=== PATIENT | male | born 1965 | race African-American/Black ===

== ENCOUNTER 2020-04-13 10:59 | Inpatient (IN) | payer OTHER ==
[2020-04-13 11:10] VITALS: BMI 25.0
[2020-04-13 12:46] LABS: BASO % 0.8 % (0-2.0); EOS % 3.1 % (0-4.5); HEMATOCRIT 41.1 % (35.4-49); HEMOGLOBIN 13.3 GM/dL (11.7-16.9); LYMPH % 27.8 % (8-40); MCH 30.1 pg (25.7-33.7); MCHC 32.4 g/dl (32.0-35.9); MEAN CELL VOLUME 92.9 fl (80-96); MEAN PLT VOLUME 8.4 fl (7.5-11.1); MONO % 6.3 % (3.8-10.2); PLATELET COUNT 247 K/MM3 (134-434); RBC 4.43 M/mm3 (4.00-5.60); RDW 12.9 % (11.9-15.9); WHITE BLOOD COUNT 6.8 K/mm3 (4.0-10.0)
[2020-04-13] MEDS ORDERED: VANCOMYCIN 1 GM in D5W (PRE-DOCKED) 1,000 MG/250 ML IVPB ONE (12:46)
[2020-04-13 12:57] LABS: INR 1.09 (0.83-1.09); PROTHROMBIN TIME (PATIENT) 13.1 SEC (9.7-13.0)
[2020-04-13] MEDS ORDERED: VANCOMYCIN 1 GRAM (PRE-DOCKED) 1,000 MG/250 ML BAG IVPB ONE (13:20)
[2020-04-13 14:04] LABS: ALBUMIN 3.6 g/dl (3.4-5.0); BILIRUBIN,TOTAL 0.5 mg/dL (0.2-1); BLOOD UREA NITROGEN 16.3 mg/dL (7-18); CALCIUM 9.9 mg/dL (8.5-10.1); MAGNESIUM 2.2 mg/dL (1.8-2.4); POTASSIUM 4.2 mmol/L (3.5-5.1); TOT PROT 8.9 g/dl (6.4-8.2)
[2020-04-13] MEDS: CEFAZOLIN 1 GM in DEXTROSE 5%-WATER - 50 ML IVPB SCH ×2 (17:53→18:05)
[2020-04-13] MEDS ORDERED: CEFAZOLIN 1 GM/D5W 1 GM/50 ML BAG ONE (17:55)
[2020-04-13] MEDS ORDERED: HEPARIN NA (PORCINE) 5,000 UNITS/ML 1ML VIAL ONE (21:56)
[2020-04-13] MEDS ORDERED: ACETAMINOPHEN 325 MG TABLET (FP) ONE (21:56)
[2020-04-13] MEDS: HEPARIN NA (PORCINE) 5,000 UNITS/ML 1ML VIAL SQ SCH (22:00)
[2020-04-13] MEDS: ACETAMINOPHEN 325 MG TABLET (FP) PO PRN (22:00)
[2020-04-14] MEDS ORDERED: ceFAZolin SODIUM 1 GM VIAL ONE ×3 (01:58→17:53)
[2020-04-14] MEDS ORDERED: DEXTROSE 5%-WATER - 50 ML IVPB ONE ×3 (01:59→17:53)
[2020-04-14] MEDS: CEFAZOLIN 1 GM in DEXTROSE 5%-WATER - 50 ML IVPB SCH ×3 (02:14→17:56)
[2020-04-14] MEDS ORDERED: LOSARTAN POTASSIUM 100 MG TABLET PO SCH (10:00)
[2020-04-14] MEDS ORDERED: PT OWN MED DRAWER 7, Y5N ONE ×2 (10:09→10:31)
[2020-04-14] MEDS: HEPARIN NA (PORCINE) 5,000 UNITS/ML 1ML VIAL SQ SCH ×2 (10:13→21:32)
[2020-04-14] MEDS: HYDROCHLOROTHIAZIDE 25 MG TABLET (FP) PO SCH (10:13)
[2020-04-14] MEDS: PANTOPRAZOLE 40 MG TABLET PO SCH (10:13)
[2020-04-14] MEDS: COLLAGENASE CLOSTRIDIUM HIST. 30 GRAMS TUBE TP SCH (10:14)
[2020-04-14] MEDS: FENOFIBRIC ACID 135 MG CAP PO SCH (11:14)
[2020-04-15] MEDS ORDERED: ceFAZolin SODIUM 1 GM VIAL ONE ×3 (02:06→16:33)
[2020-04-15] MEDS ORDERED: DEXTROSE 5%-WATER - 50 ML IVPB ONE ×3 (02:07→16:33)
[2020-04-15] MEDS: CEFAZOLIN 1 GM in DEXTROSE 5%-WATER - 50 ML IVPB SCH ×3 (02:14→17:58)
[2020-04-15] MEDS: HEPARIN NA (PORCINE) 5,000 UNITS/ML 1ML VIAL SQ SCH ×2 (09:14→21:15)
[2020-04-15] MEDS: LOSARTAN POTASSIUM 50 MG TABLET PO SCH (09:14)
[2020-04-15] MEDS: PANTOPRAZOLE 40 MG TABLET PO SCH (09:14)
[2020-04-15] MEDS: HYDROCHLOROTHIAZIDE 25 MG TABLET (FP) PO SCH (09:15)
[2020-04-15] MEDS: FENOFIBRIC ACID 135 MG CAP PO SCH (09:15)
[2020-04-15] MEDS: COLLAGENASE CLOSTRIDIUM HIST. 30 GRAMS TUBE TP SCH (09:18)
[2020-04-16] MEDS ORDERED: DEXTROSE 5%-WATER - 50 ML IVPB ONE ×3 (00:26→16:46)
[2020-04-16] MEDS ORDERED: ceFAZolin SODIUM 1 GM VIAL ONE ×3 (00:26→16:46)
[2020-04-16] MEDS: CEFAZOLIN 1 GM in DEXTROSE 5%-WATER - 50 ML IVPB SCH ×3 (02:08→17:46)
[2020-04-16] MEDS: PANTOPRAZOLE 40 MG TABLET PO SCH (09:27)
[2020-04-16] MEDS: HEPARIN NA (PORCINE) 5,000 UNITS/ML 1ML VIAL SQ SCH ×2 (09:28→22:16)
[2020-04-16] MEDS: HYDROCHLOROTHIAZIDE 25 MG TABLET (FP) PO SCH (09:28)
[2020-04-16] MEDS: LOSARTAN POTASSIUM 50 MG TABLET PO SCH (09:28)
[2020-04-16] MEDS: FENOFIBRIC ACID 135 MG CAP PO SCH (09:35)
[2020-04-16] MEDS: COLLAGENASE CLOSTRIDIUM HIST. 30 GRAMS TUBE TP SCH (09:36)
[2020-04-17] MEDS ORDERED: ceFAZolin SODIUM 1 GM VIAL ONE ×3 (00:36→18:01)
[2020-04-17] MEDS ORDERED: DEXTROSE 5%-WATER - 50 ML IVPB ONE ×3 (00:36→18:01)
[2020-04-17] MEDS: CEFAZOLIN 1 GM in DEXTROSE 5%-WATER - 50 ML IVPB SCH ×3 (02:45→18:38)
[2020-04-17] MEDS ORDERED: PT OWN MED DRAWER 7, Y5N ONE (09:35)
[2020-04-17] MEDS: LOSARTAN POTASSIUM 50 MG TABLET PO SCH (09:46)
[2020-04-17] MEDS: HYDROCHLOROTHIAZIDE 25 MG TABLET (FP) PO SCH (09:46)
[2020-04-17] MEDS: FENOFIBRIC ACID 135 MG CAP PO SCH (09:47)
[2020-04-17] MEDS: HEPARIN NA (PORCINE) 5,000 UNITS/ML 1ML VIAL SQ SCH ×2 (09:47→21:08)
[2020-04-17] MEDS: COLLAGENASE CLOSTRIDIUM HIST. 30 GRAMS TUBE TP SCH (09:47)
[2020-04-17] MEDS: PANTOPRAZOLE 40 MG TABLET PO SCH (09:47)
[2020-04-18] MEDS ORDERED: ceFAZolin SODIUM 1 GM VIAL ONE ×3 (01:42→16:33)
[2020-04-18] MEDS ORDERED: DEXTROSE 5%-WATER - 50 ML IVPB ONE ×4 (01:43→20:18)
[2020-04-18] MEDS: CEFAZOLIN 1 GM in DEXTROSE 5%-WATER - 50 ML IVPB SCH ×3 (02:03→17:34)
[2020-04-18] MEDS ORDERED: PT OWN MED DRAWER 7, Y5N ONE (09:20)
[2020-04-18] MEDS: HYDROCHLOROTHIAZIDE 25 MG TABLET (FP) PO SCH (09:34)
[2020-04-18] MEDS: HEPARIN NA (PORCINE) 5,000 UNITS/ML 1ML VIAL SQ SCH ×2 (09:34→21:13)
[2020-04-18] MEDS: FENOFIBRIC ACID 135 MG CAP PO SCH (09:34)
[2020-04-18] MEDS: LOSARTAN POTASSIUM 50 MG TABLET PO SCH (09:34)
[2020-04-18] MEDS: PANTOPRAZOLE 40 MG TABLET PO SCH (09:34)
[2020-04-18] MEDS: COLLAGENASE CLOSTRIDIUM HIST. 30 GRAMS TUBE TP SCH (14:58)
[2020-04-18] MEDS ORDERED: PIPERACILLIN/TAZOBACTAM 3.375 GM VIAL IVPB ONE (20:18)
[2020-04-18] MEDS: PIPERACILLIN/TAZOB 3.375 GM 3.375 GM in DEXTROSE 5%-WATER - 50 ML IVPB SCH (20:20)
[2020-04-19] MEDS ORDERED: DEXTROSE 5%-WATER - 50 ML IVPB ONE ×3 (01:10→15:37)
[2020-04-19] MEDS ORDERED: PIPERACILLIN/TAZOBACTAM 3.375 GM VIAL IVPB ONE ×3 (01:10→15:37)
[2020-04-19] MEDS: PIPERACILLIN/TAZOB 3.375 GM 3.375 GM in DEXTROSE 5%-WATER - 50 ML IVPB SCH ×3 (01:10→17:38)
[2020-04-19] MEDS ORDERED: PT OWN MED DRAWER 7, Y5N ONE (09:35)
[2020-04-19] MEDS: FENOFIBRIC ACID 135 MG CAP PO SCH (09:44)
[2020-04-19] MEDS: PANTOPRAZOLE 40 MG TABLET PO SCH (09:45)
[2020-04-19] MEDS: LOSARTAN POTASSIUM 50 MG TABLET PO SCH (09:45)
[2020-04-19] MEDS: HEPARIN NA (PORCINE) 5,000 UNITS/ML 1ML VIAL SQ SCH ×2 (09:45→21:05)
[2020-04-19] MEDS: HYDROCHLOROTHIAZIDE 25 MG TABLET (FP) PO SCH (09:45)
[2020-04-19] MEDS: COLLAGENASE CLOSTRIDIUM HIST. 30 GRAMS TUBE TP SCH (12:10)
[2020-04-20] MEDS ORDERED: PIPERACILLIN/TAZOBACTAM 3.375 GM VIAL IVPB ONE ×3 (00:45→17:25)
[2020-04-20] MEDS ORDERED: DEXTROSE 5%-WATER - 50 ML IVPB ONE ×3 (00:45→17:26)
[2020-04-20] MEDS: PIPERACILLIN/TAZOB 3.375 GM 3.375 GM in DEXTROSE 5%-WATER - 50 ML IVPB SCH ×3 (01:00→17:37)
[2020-04-20 07:33] LABS: BASO % 0.7 % (0-2.0); EOS % 4.9 % (0-4.5); HEMATOCRIT 42.5 % (35.4-49); HEMOGLOBIN 13.9 GM/dL (11.7-16.9); LYMPH % 20.7 % (8-40); MCH 30.5 pg (25.7-33.7); MCHC 32.8 g/dl (32.0-35.9); MEAN CELL VOLUME 93.1 fl (80-96); MEAN PLT VOLUME 8.5 fl (7.5-11.1); MONO % 10.9 % (3.8-10.2); NEUT % 62.8 % (42.8-82.8); PLATELET COUNT 192 K/MM3 (134-434); RBC 4.56 M/mm3 (4.00-5.60); RDW 12.5 % (11.9-15.9); WHITE BLOOD COUNT 6.1 K/mm3 (4.0-10.0)
[2020-04-20 07:54] LABS: POTASSIUM 4.2 mmol/L (3.5-5.1)
[2020-04-20 08:09] LABS: ALBUMIN 3.7 g/dl (3.4-5.0); CALCIUM 9.8 mg/dL (8.5-10.1)
[2020-04-20 08:10] LABS: BLOOD UREA NITROGEN 17.4 mg/dL (7-18)
[2020-04-20 08:12] LABS: CREATININE 1.4 mg/dL (0.55-1.3)
[2020-04-20 08:14] LABS: BILIRUBIN,TOTAL 0.5 mg/dL (0.2-1); TOT PROT 8.6 g/dl (6.4-8.2)
[2020-04-20] MEDS ORDERED: PT OWN MED DRAWER 7, Y5N ONE (10:06)
[2020-04-20] MEDS: FENOFIBRIC ACID 135 MG CAP PO SCH (10:12)
[2020-04-20] MEDS: LOSARTAN POTASSIUM 50 MG TABLET PO SCH (10:13)
[2020-04-20] MEDS: PANTOPRAZOLE 40 MG TABLET PO SCH (10:13)
[2020-04-20] MEDS: HEPARIN NA (PORCINE) 5,000 UNITS/ML 1ML VIAL SQ SCH ×2 (10:13→21:22)
[2020-04-20] MEDS: HYDROCHLOROTHIAZIDE 25 MG TABLET (FP) PO SCH (10:13)
[2020-04-20] MEDS: COLLAGENASE CLOSTRIDIUM HIST. 30 GRAMS TUBE TP SCH (14:16)
[2020-04-21] MEDS ORDERED: DEXTROSE 5%-WATER - 50 ML IVPB ONE ×3 (01:13→17:13)
[2020-04-21] MEDS ORDERED: PIPERACILLIN/TAZOBACTAM 3.375 GM VIAL IVPB ONE ×3 (01:13→17:12)
[2020-04-21] MEDS: PIPERACILLIN/TAZOB 3.375 GM 3.375 GM in DEXTROSE 5%-WATER - 50 ML IVPB SCH ×3 (01:37→17:30)
[2020-04-21 08:45] LABS: POTASSIUM 3.9 mmol/L (3.5-5.1)
[2020-04-21 08:54] LABS: BLOOD UREA NITROGEN 19.2 mg/dL (7-18); CALCIUM 10.1 mg/dL (8.5-10.1)
[2020-04-21 08:58] LABS: CREATININE 1.4 mg/dL (0.55-1.3)
[2020-04-21] MEDS ORDERED: PT OWN MED DRAWER 7, Y5N ONE (09:36)
[2020-04-21] MEDS: LOSARTAN POTASSIUM 50 MG TABLET PO SCH (09:51)
[2020-04-21] MEDS: HEPARIN NA (PORCINE) 5,000 UNITS/ML 1ML VIAL SQ SCH ×2 (09:52→21:44)
[2020-04-21] MEDS: PANTOPRAZOLE 40 MG TABLET PO SCH (09:53)
[2020-04-21] MEDS: FENOFIBRIC ACID 135 MG CAP PO SCH (09:54)
[2020-04-21] MEDS: COLLAGENASE CLOSTRIDIUM HIST. 30 GRAMS TUBE TP SCH (14:12)
[2020-04-21] MEDS: ACETAMINOPHEN 325 MG TABLET (FP) PO PRN (21:43)
[2020-04-22] MEDS ORDERED: DEXTROSE 5%-WATER - 50 ML IVPB ONE ×2 (02:08→09:34)
[2020-04-22] MEDS ORDERED: PIPERACILLIN/TAZOBACTAM 3.375 GM VIAL IVPB ONE ×2 (02:08→09:34)
[2020-04-22] MEDS: PIPERACILLIN/TAZOB 3.375 GM 3.375 GM in DEXTROSE 5%-WATER - 50 ML IVPB SCH ×2 (02:25→09:44)
[2020-04-22] MEDS ORDERED: PT OWN MED DRAWER 7, Y5N ONE (09:33)
[2020-04-22] MEDS: LOSARTAN POTASSIUM 50 MG TABLET PO SCH (09:38)
[2020-04-22] MEDS: PANTOPRAZOLE 40 MG TABLET PO SCH (09:40)
[2020-04-22] MEDS: FENOFIBRIC ACID 135 MG CAP PO SCH (09:43)
[2020-04-22] MEDS: COLLAGENASE CLOSTRIDIUM HIST. 30 GRAMS TUBE TP SCH (09:44)
[2020-04-22] MEDS: HEPARIN NA (PORCINE) 5,000 UNITS/ML 1ML VIAL SQ SCH (09:44)
[2020-04-22 13:30] VITALS: BP 121/78; PULSE 82; TEMP 98
== END 2020-04-22 13:37 | disposition home or self-care (01) | DRG 464 ==
LOC: JER 10:59 → JERBED 14:59 → J6S 23:50
PROVIDERS: ADMIT Internal Medicine; ATTEND Internal Medicine
PROC: 0JBQ0ZZ Excision of Right Foot Subcutaneous Tissue and Fascia, Open Approach (ICD-10-PCS; principal; 2020-04-15)
PROC: 02HV33Z Insertion of Infusion Device into Superior Vena Cava, Percutaneous Approach (ICD-10-PCS; 2020-04-15)
PROC: B518ZZA Fluoroscopy of Superior Vena Cava, Guidance (ICD-10-PCS; 2020-04-15)
DX: M86.8X7 Other osteomyelitis, ankle and foot (principal); L97.518 Non-pressure chronic ulcer of other part of right foot with other specified severity; S91.301A Unspecified open wound, right foot, initial encounter; I10 Essential (primary) hypertension; F17.210 Nicotine dependence, cigarettes, uncomplicated; E78.5 Hyperlipidemia, unspecified; G62.9 Polyneuropathy, unspecified; B96.5 Pseudomonas (aeruginosa) (mallei) (pseudomallei) as the cause of diseases classified elsewhere; B96.89 Other specified bacterial agents as the cause of diseases classified elsewhere; X58.XXXA Exposure to other specified factors, initial encounter
CPT/HCPCS: 36415; 36558; 71045-TC-FY; 77001-TC-FY; 80048; 80053; 83605; 83735; 85025; 85610; 86140; 86850; 86900; 86901; 87040; 87070; 87186; 87205; 93005; 93010; 93971-TC; 99285-25; C1751; C9803; J1644; U0003

== ENCOUNTER → 2020-08-06 | Day surgery (SDC) | payer OTHER | END | disposition home or self-care (01) | LOC: JRADIR 12:55 | PROVIDERS: ATTEND Internal Medicine Infectious Disease | PROC: 0JPT0XZ Removal of Tunneled Vascular Access Device from Trunk Subcutaneous Tissue and Fascia, Open Approach (ICD-10-PCS; principal; 2020-08-06) | DX: Z45.2 Encounter for adjustment and management of vascular access device (principal) | CPT/HCPCS: 36589 ==